=== PATIENT | male | born 1975 | race Caucasian/White ===

== ENCOUNTER 2023-01-04 14:43 | Emergency (ER) | payer OTHER | END 2023-01-04 15:10 | disposition home or self-care (01) | LOC: VM.ED 14:43 | DX: E11.40 Type 2 diabetes mellitus with diabetic neuropathy, unspecified (principal) | CPT/HCPCS: 99283 ==

== ENCOUNTER 2023-03-31 14:37 | Emergency (ER) | payer OTHER | END 2023-03-31 15:15 | disposition home or self-care (01) | LOC: VM.ED 14:37 | DX: K03.81 Cracked tooth (principal); K04.7 Periapical abscess without sinus; K02.9 Dental caries, unspecified; E78.00 Pure hypercholesterolemia, unspecified; E11.40 Type 2 diabetes mellitus with diabetic neuropathy, unspecified; Z79.899 Other long term (current) drug therapy; Z88.0 Allergy status to penicillin; Z88.2 Allergy status to sulfonamides | CPT/HCPCS: 99283 ==

== ENCOUNTER 2024-01-01 10:33 | Emergency (ER) | payer OTHER ==
[2024-01-01] MEDS ORDERED: Sodium Chloride 0.9% 10 ML Syringe FLUSH PRN (11:00)
[2024-01-01 11:12] LABS: BASOPHILS PERCENT AUTO 0.1 % (0.2-1.2); EOSINOPHILS PERCENT AUTO 0.3 % (0.0-4.0); HEMATOCRIT 50.6 % (40.0-52.0); HEMOGLOBIN 18.2 g/dL (14.0-18.0); IMMATURE GRAN ABSOLUTE AUTO 0.03 x10^3/uL (0.00-0.07); LYMPHOCYTES ABSOLUTE AUTO 1.8 x10^3/uL (1.0-4.8); LYMPHOCYTES PERCENT AUTO 15.1 % (25.0-50.0); MEAN CORPUSCULAR HEMOGLOBIN 30.8 pg (26.0-32.0); MEAN CORPUSCULAR VOLUME 85.6 fL (78.0-93.0); MONOCYTES ABSOLUTE AUTO 0.9 x10^3/uL (0.0-0.8); MONOCYTES PERCENT AUTO 7.6 % (2.0-11.0); NEUTROPHILS ABSOLUTE AUTO 9.1 x10^3/uL (1.8-7.7); NEUTROPHILS PERCENT AUTO 76.6 % (50.0-80.0); PLATELET COUNT,PLT 210 x10^3/uL (130-400); RED BLOOD CELL COUNT 5.91 x10^6/uL (4.5-6.0); WHITE BLOOD CELL COUNT,WBC 11.9 x10^3/uL (4.0-10.0)
[2024-01-01] MEDS: Pantoprazole 40 MG in Sodium Chloride 0.9% 100 ML IV SCH (11:21)
[2024-01-01] MEDS: Lactated Ringers 1,000 ML IV ONE ×2 (11:21→12:14)
[2024-01-01] MEDS: Ondansetron 4 MG/2 ML SDV IVPUSH ONE (11:22)
[2024-01-01 11:36] LABS: A/G RATIO 0.94; ALANINE AMINOTRANSFERASE,ALT 45 U/L (16-63); ALBUMIN 4.5 g/dL (3.4-5.0); ALKALINE PHOSPHATASE 108 U/L (46-116); AMYLASE 38 U/L (25-115); ASPARTATE AMNIOTRANSFERASE,AST 26 U/L (15-37); BILIRUBIN TOTAL 0.9 mg/dL (0.2-1.0); BLOOD UREA NITROGEN,BUN 35 mg/dL (7-18); CALCIUM 10.9 mg/dL (8.5-10.1); CARBON DIOXIDE,CO2 25 mmol/L (21-32); CHLORIDE,CL 91 mmol/L (98-107); CREATININE 1.2 mg/dL (0.70-1.30); GLUCOSE RANDOM 267 mg/dL (70-99); LIPASE 32 U/L (19-71); MAGNESIUM 1.9 mg/dL (1.8-2.4); POTASSIUM,K 4.8 mmol/L (3.5-5.1); PROTEIN TOTAL,TP 9.3 g/dL (6.4-8.2); SODIUM,NA 134 mmol/L (136-145); TSH ULTRASENSITIVE 2.074 uIU/mL (0.358-3.74)
[2024-01-01 11:38] LABS: ANION GAP 22.8 mmol/L (5-15); ESTIMATED GFR 74 mL/min (>=60)
[2024-01-01 11:39] LABS: C-REACTIVE PROTEIN < 0.50 mg/dL (<=0.50); ETHANOL BLOOD MEDICAL < 3 mg/dL (0-3)
[2024-01-01 12:50] LABS: AMPHETAMINES SCREEN, URINE NEGATIVE (NEGATIVE); BARBITURATE SCREEN,URINE NEGATIVE (NEGATIVE); BENZODIAZEPINES SCREEN,URINE NEGATIVE (NEGATIVE); BUPRENORPHINE SCREEN,URINE NEGATIVE (NEGATIVE); COCAINE METABOLITES,URINE NEGATIVE (NEGATIVE); METHADONE SCREEN, URINE NEGATIVE (NEGATIVE); METHAMPHETAMINE SCREEN, URINE NEGATIVE (NEGATIVE); OXYCODONE SCREEN,URINE NEGATIVE (NEGATIVE); PCP SCREEN,URINE NEGATIVE (NEGATIVE); THC SCREEN,URINE 50 NG/ML POSITIVE (NEGATIVE)
[2024-01-01] MEDS: Lactated Ringers 1,000 ML IV SCH (13:04)
[2024-01-01 14:43] LABS: APPEARANCE,URINE CLEAR (CLEAR); BILIRUBIN,URINE SMALL (NEGATIVE); COLOR,URINE YELLOW (YELLOW); GLUCOSE,URINE 500 mg/dL (NEGATIVE); KETONES,URINE >=160 mg/dL (NEGATIVE); LEUKOCYTE ESTERASE,URINE NEGATIVE (NEGATIVE); NITRITE,URINE NEGATIVE (NEGATIVE); OCCULT BLOOD,URINE NEGATIVE (NEGATIVE); PH,URINE 5.5 (5.0-8.0); PROTEIN,URINE TRACE mg/dL (NEGATIVE); UROBILINOGEN,URINE 0.2 EU/dL (0.2)
[2024-01-01 14:45] LABS: BACTERIA,URINE NOT SEEN /HPF (NOT SEEN); MUCUS,URINE OCCASIONAL /LPF (NOT SEEN); RBC,URINE 0-5 /HPF (NOT SEEN); SQUAMOUS EPITHELIAL CELLS,UR NOT SEEN /HPF (NOT SEEN); WBC,URINE NOT SEEN /HPF (NOT SEEN)
[2024-01-01 14:50] LABS: BLOOD UREA NITROGEN,BUN 26 mg/dL (7-18); CALCIUM 9.2 mg/dL (8.5-10.1); CARBON DIOXIDE,CO2 26 mmol/L (21-32); CHLORIDE,CL 97 mmol/L (98-107); GLUCOSE RANDOM 177 mg/dL (70-99); POTASSIUM,K 4.4 mmol/L (3.5-5.1); SODIUM,NA 135 mmol/L (136-145)
[2024-01-01 14:51] LABS: ANION GAP 16.4 mmol/L (5-15)
[2024-01-01 14:52] LABS: ESTIMATED GFR 92 mL/min (>=60)
[2024-01-01] MEDS: Take Home: Ondansetron 4 MG Tab.DIS, 5 Tab Pack PO ONE (15:16)
== END 2024-01-01 15:20 | disposition home or self-care (01) ==
LOC: VM.ED 10:33
DX: R11.2 Nausea with vomiting, unspecified (principal); E78.00 Pure hypercholesterolemia, unspecified; E11.40 Type 2 diabetes mellitus with diabetic neuropathy, unspecified; Z88.0 Allergy status to penicillin; Z88.2 Allergy status to sulfonamides; Z79.899 Other long term (current) drug therapy
CPT/HCPCS: 36415; 80048; 80053; 80305; 80307; 81001; 82150; 83605; 83690; 83735; 84443; 85025; 86140; 96361; 96365; 96375; 99284; C9113; J2405; J3490; J7120; Q0162; 99283

== ENCOUNTER 2024-02-07 20:41 | Emergency (ER) | payer OTHER ==
[2024-02-07 21:22] LABS: BASOPHILS PERCENT AUTO 0.1 % (0.2-1.2); EOSINOPHILS ABSOLUTE AUTO 0.1 x10^3/uL (0.0-0.5); EOSINOPHILS PERCENT AUTO 0.7 % (0.0-4.0); HEMATOCRIT 44.9 % (40.0-52.0); HEMOGLOBIN 15.6 g/dL (14.0-18.0); IMMATURE GRAN ABSOLUTE AUTO 0.01 x10^3/uL (0.00-0.07); LYMPHOCYTES ABSOLUTE AUTO 1.4 x10^3/uL (1.0-4.8); MEAN CORPUSCULAR HEMOGLOBIN 30.9 pg (26.0-32.0); MEAN CORPUSCULAR HGB CONC 34.7 g/dL (32.0-36.0); MEAN CORPUSCULAR VOLUME 88.9 fL (78.0-93.0); MONOCYTES ABSOLUTE AUTO 0.7 x10^3/uL (0.0-0.8); MONOCYTES PERCENT AUTO 8.3 % (2.0-11.0); NEUTROPHILS ABSOLUTE AUTO 6.1 x10^3/uL (1.8-7.7); NEUTROPHILS PERCENT AUTO 73.8 % (50.0-80.0); PLATELET COUNT,PLT 192 x10^3/uL (130-400); RED BLOOD CELL COUNT 5.05 x10^6/uL (4.5-6.0); WHITE BLOOD CELL COUNT,WBC 8.3 x10^3/uL (4.0-10.0)
[2024-02-07 21:41] LABS: A/G RATIO 1.24; ALANINE AMINOTRANSFERASE,ALT 20 U/L (16-63); ALBUMIN 4.2 g/dL (3.4-5.0); ALKALINE PHOSPHATASE 82 U/L (46-116); ASPARTATE AMNIOTRANSFERASE,AST 20 U/L (15-37); BILIRUBIN TOTAL 0.9 mg/dL (0.2-1.0); BLOOD UREA NITROGEN,BUN 24 mg/dL (7-18); CALCIUM 9.8 mg/dL (8.5-10.1); CARBON DIOXIDE,CO2 24 mmol/L (21-32); GLUCOSE RANDOM 172 mg/dL (70-99); PROTEIN TOTAL,TP 7.6 g/dL (6.4-8.2)
[2024-02-07 21:45] LABS: ANION GAP 21.4 mmol/L (5-15); CHLORIDE,CL 96 mmol/L (98-107); ESTIMATED GFR 92 mL/min (>=60); POTASSIUM,K 4.4 mmol/L (3.5-5.1); SODIUM,NA 137 mmol/L (136-145)
[2024-02-07 21:50] LABS: APPEARANCE,URINE CLEAR (CLEAR); BILIRUBIN,URINE MODERATE (NEGATIVE); COLOR,URINE DARK YELLOW (YELLOW); GLUCOSE,URINE NEGATIVE (NEGATIVE); KETONES,URINE 80 mg/dL (NEGATIVE); LEUKOCYTE ESTERASE,URINE NEGATIVE (NEGATIVE); NITRITE,URINE NEGATIVE (NEGATIVE); OCCULT BLOOD,URINE NEGATIVE (NEGATIVE); PROTEIN,URINE 100 mg/dL (NEGATIVE)
[2024-02-07 22:02] LABS: BACTERIA,URINE RARE /HPF (NOT SEEN); RBC,URINE 0-5 /HPF (NOT SEEN); SQUAMOUS EPITHELIAL CELLS,UR NOT SEEN /HPF (NOT SEEN); WBC,URINE NOT SEEN /HPF (NOT SEEN)
== END 2024-02-07 22:20 | disposition home or self-care (01) ==
LOC: VM.ED 20:41
DX: R11.2 Nausea with vomiting, unspecified (principal); E78.00 Pure hypercholesterolemia, unspecified; E11.40 Type 2 diabetes mellitus with diabetic neuropathy, unspecified; Z79.82 Long term (current) use of aspirin; Z79.899 Other long term (current) drug therapy; Z88.0 Allergy status to penicillin; Z88.2 Allergy status to sulfonamides
CPT/HCPCS: 36415; 80053; 81001; 85025; 99283; 99284

== ENCOUNTER 2024-08-29 17:22 | Emergency (ER) | payer BC, OTHER ==
[2024-08-29] MEDS ORDERED: Sodium Chloride 0.9% 10 ML Syringe FLUSH PRN (17:39)
[2024-08-29 17:46] LABS: BASOPHILS PERCENT AUTO 0.1 % (0.2-1.2); EOSINOPHILS ABSOLUTE AUTO 0.1 x10^3/uL (0.0-0.5); EOSINOPHILS PERCENT AUTO 0.9 % (0.0-4.0); HEMATOCRIT 50.8 % (40.0-52.0); HEMOGLOBIN 17.7 g/dL (14.0-18.0); IMMATURE GRAN ABSOLUTE AUTO 0.05 x10^3/uL (0.00-0.07); LYMPHOCYTES ABSOLUTE AUTO 2.3 x10^3/uL (1.0-4.8); LYMPHOCYTES PERCENT AUTO 15.3 % (25.0-50.0); MEAN CORPUSCULAR HEMOGLOBIN 31.6 pg (26.0-32.0); MEAN CORPUSCULAR HGB CONC 34.8 g/dL (32.0-36.0); MEAN CORPUSCULAR VOLUME 90.6 fL (78.0-93.0); NEUTROPHILS ABSOLUTE AUTO 11.4 x10^3/uL (1.8-7.7); NEUTROPHILS PERCENT AUTO 76.4 % (50.0-80.0); PLATELET COUNT,PLT 290 x10^3/uL (130-400); RED BLOOD CELL COUNT 5.61 x10^6/uL (4.5-6.0); WHITE BLOOD CELL COUNT,WBC 14.9 x10^3/uL (4.0-10.0)
[2024-08-29] MEDS: Lactated Ringers 1,000 ML IV ONE ×2 (17:49→19:08)
[2024-08-29] MEDS: Ondansetron 4 MG/2 ML SDV IVPUSH ONE ×2 (17:50→20:20)
[2024-08-29 17:57] LABS: INR 0.9 (0.9-1.1); PROTHROMBIN TIME 10.1 SEC (9.6-12.0); PTT,PARTIAL THROMBOPLSTIN TIME 24.5 SEC (23.5-33.2)
[2024-08-29 18:00] LABS: A/G RATIO 0.83; ALANINE AMINOTRANSFERASE,ALT 30 U/L (16-63); ALKALINE PHOSPHATASE 97 U/L (46-116); ASPARTATE AMNIOTRANSFERASE,AST 19 U/L (15-37); BILIRUBIN TOTAL 0.7 mg/dL (0.2-1.0); BLOOD UREA NITROGEN,BUN 26 mg/dL (7-18); C-REACTIVE PROTEIN 8.57 mg/dL (<=0.50); CALCIUM 10.5 mg/dL (8.5-10.1); CARBON DIOXIDE,CO2 22 mmol/L (21-32); CHLORIDE,CL 89 mmol/L (98-107); GLUCOSE RANDOM 198 mg/dL (70-99); LIPASE 28 U/L (19-71); MAGNESIUM 2.1 mg/dL (1.8-2.4); PROTEIN TOTAL,TP 8.8 g/dL (6.4-8.2); SODIUM,NA 133 mmol/L (136-145)
[2024-08-29 18:01] LABS: ESTIMATED GFR 92 mL/min (>=60)
[2024-08-29 18:03] LABS: LACTIC ACID 2.6 mmol/L (0.4-2.0)
[2024-08-29] MEDS: Iopamidol 612 MG/ML 100 ML Bottle IVPUSH ONE (18:32)
[2024-08-29] MEDS ORDERED: cefTRIAXone 2 GM Vial IVPUSH ONE (19:32)
[2024-08-29] MEDS: Sodium Chloride 0.9% 1,000 ML IV ONE (19:55)
[2024-08-29] MEDS: Ciprofloxacin in D5W 400 MG in Premix Bag 1 BAG IV ONE (20:05)
[2024-08-29 20:27] LABS: APPEARANCE,URINE CLEAR (CLEAR); BILIRUBIN,URINE SMALL (NEGATIVE); COLOR,URINE YELLOW (YELLOW); GLUCOSE,URINE 500 mg/dL (NEGATIVE); KETONES,URINE >=160 mg/dL (NEGATIVE); LEUKOCYTE ESTERASE,URINE NEGATIVE (NEGATIVE); NITRITE,URINE NEGATIVE (NEGATIVE); OCCULT BLOOD,URINE NEGATIVE (NEGATIVE); PH,URINE 5.5 (5.0-8.0); PROTEIN,URINE NEGATIVE (NEGATIVE); UROBILINOGEN,URINE 0.2 EU/dL (0.2)
[2024-08-29] MEDS: HYDROmorphone 0.5 MG/0.5 ML Syringe IVPUSH ONE (20:56)
[2024-08-29] MEDS: metroNIDAZOLE/Normal Saline 500 MG in Premix Bag 1 BAG IV ONE (21:13)
== END 2024-08-29 21:25 | disposition short-term general hospital (02) ==
LOC: VM.ED 17:22
DX: K35.200 Acute appendicitis with generalized peritonitis, without perforation or abscess (principal); E78.00 Pure hypercholesterolemia, unspecified; E11.40 Type 2 diabetes mellitus with diabetic neuropathy, unspecified; Z79.899 Other long term (current) drug therapy; Z79.82 Long term (current) use of aspirin; Z79.84 Long term (current) use of oral hypoglycemic drugs; Z88.2 Allergy status to sulfonamides; Z88.0 Allergy status to penicillin
CPT/HCPCS: 36415; 74177; 80053; 81003; 83605; 83690; 83735; 85025; 85610; 85730; 86140; 87428-QW; 96361; 96365; 96375; 96376; 99284; 99285-25; J0744; J1836; J2405; J7030; J7120; Q9967

== ENCOUNTER 2024-09-02 17:20 | Emergency (ER) | payer BC ==
[2024-09-02] MEDS: Lactated Ringers 1,000 ML IV SCH (17:42)
[2024-09-02] MEDS: Ondansetron 4 MG/2 ML SDV IVPUSH PRN (17:42)
[2024-09-02 17:49] LABS: HEMATOCRIT 52.2 % (40.0-52.0); HEMOGLOBIN 17.8 g/dL (14.0-18.0); MEAN CORPUSCULAR HEMOGLOBIN 31.3 pg (26.0-32.0); MEAN CORPUSCULAR HGB CONC 34.1 g/dL (32.0-36.0); MEAN CORPUSCULAR VOLUME 91.9 fL (78.0-93.0); RED BLOOD CELL COUNT 5.68 x10^6/uL (4.5-6.0); WHITE BLOOD CELL COUNT,WBC 16.1 x10^3/uL (4.0-10.0)
[2024-09-02 18:06] LABS: ALBUMIN 3.8 g/dL (3.4-5.0); ANION GAP 30.6 mmol/L (5-15); BILIRUBIN TOTAL 0.6 mg/dL (0.2-1.0); EST CRCL DRUG DOSING (CG) 82.55 mL/min; POTASSIUM,K 3.6 mmol/L (3.5-5.1); PROTEIN TOTAL,TP 7.6 g/dL (6.4-8.2)
[2024-09-02] MEDS: Lactated Ringers 1,000 ML IV ONE (18:24)
[2024-09-02 19:02] LABS: APPEARANCE,URINE CLEAR (CLEAR); BILIRUBIN,URINE SMALL (NEGATIVE); COLOR,URINE YELLOW (YELLOW); GLUCOSE,URINE 500 mg/dL (NEGATIVE); KETONES,URINE >=160 mg/dL (NEGATIVE); LEUKOCYTE ESTERASE,URINE NEGATIVE (NEGATIVE); NITRITE,URINE NEGATIVE (NEGATIVE); OCCULT BLOOD,URINE NEGATIVE (NEGATIVE); PROTEIN,URINE 30 mg/dL (NEGATIVE); UROBILINOGEN,URINE 0.2 EU/dL (0.2)
[2024-09-02 19:07] LABS: BACTERIA,URINE OCCASIONAL /HPF (NOT SEEN); MUCUS,URINE FEW /LPF (NOT SEEN); RBC,URINE 0-5 /HPF (NOT SEEN); WBC,URINE 0-5 /HPF (NOT SEEN)
[2024-09-02] MEDS: Metoclopramide 10 MG/2 ML SDV IVPUSH ONE (19:20)
[2024-09-02] MEDS: Take Home: Ondansetron 4 MG Tab.DIS, 5 Tab Pack PO ONE (20:15)
== END 2024-09-02 20:17 | disposition home or self-care (01) ==
LOC: VM.ED 17:20
DX: K91.0 Vomiting following gastrointestinal surgery (principal); E78.00 Pure hypercholesterolemia, unspecified; E11.40 Type 2 diabetes mellitus with diabetic neuropathy, unspecified; Z79.82 Long term (current) use of aspirin; Z79.899 Other long term (current) drug therapy; Z79.84 Long term (current) use of oral hypoglycemic drugs; Z88.0 Allergy status to penicillin; Z88.2 Allergy status to sulfonamides; Z90.49 Acquired absence of other specified parts of digestive tract
CPT/HCPCS: 80053; 81001; 85027; 96361; 96374; 96375; 99284; J2405; J2765; J7120; Q0162

== ENCOUNTER 2024-09-03 03:52 | Inpatient (IN) | payer BC ==
[2024-09-03] MEDS: Sodium Chloride 0.9% 1,000 ML IV SCH ×2 (03:57→08:17)
[2024-09-03 04:40] LABS: HEMATOCRIT 50.5 % (40.0-52.0); HEMOGLOBIN 16.9 g/dL (14.0-18.0); MEAN CORPUSCULAR HEMOGLOBIN 31.1 pg (26.0-32.0); MEAN CORPUSCULAR HGB CONC 33.5 g/dL (32.0-36.0); RED BLOOD CELL COUNT 5.43 x10^6/uL (4.5-6.0)
[2024-09-03 04:42] LABS: WHITE BLOOD CELL COUNT,WBC 20.5 x10^3/uL (4.0-10.0)
[2024-09-03 04:53] LABS: A/G RATIO 1.06; ALBUMIN 3.6 g/dL (3.4-5.0); ANION GAP 39.6 mmol/L (5-15); BILIRUBIN TOTAL 0.6 mg/dL (0.2-1.0); CALCIUM 9.4 mg/dL (8.5-10.1); CREATININE 1.3 mg/dL (0.70-1.30); EST CRCL DRUG DOSING (CG) 65.07 mL/min; POTASSIUM,K 4.6 mmol/L (3.5-5.1)
[2024-09-03] MEDS: Iopamidol 612 MG/ML 100 ML Bottle IVPUSH ONE (05:00)
[2024-09-03] MEDS: Metoclopramide 10 MG/2 ML SDV IVPUSH ONE (07:22)
[2024-09-03] MEDS ORDERED: Metoclopramide 10 MG/2 ML SDV IV PRN (12:30)
[2024-09-03] MEDS ORDERED: Prochlorperazine 10 MG/2 ML SDV IV PRN (12:30)
[2024-09-03] MEDS ORDERED: Scopalamine 1mg/3day Transdermal Patch TRDERM PRN (12:37)
[2024-09-03] MEDS: Enoxaparin 40 MG/0.4 ML Syringe SUBCUT SCH (13:11)
[2024-09-03] MEDS: Lactated Ringers 1,000 ML IV SCH (13:12)
[2024-09-03] MEDS: Pantoprazole 40 MG Vial IVPUSH SCH (13:12)
[2024-09-03] MEDS: Lidocaine 4% 5 ML Amp TOP ONE (19:35)
[2024-09-03] MEDS: Promethazine 25 MG/ML SDV IM ONE (19:36)
[2024-09-03] MEDS: ESTRADIOL 2 MG PO SCH (20:13)
[2024-09-03] MEDS: Ciprofloxacin in D5W 400 MG in Premix Bag 1 BAG IV SCH (20:48)
[2024-09-03] MEDS: metroNIDAZOLE/Normal Saline 500 MG in Premix Bag 1 BAG IV SCH (20:48)
[2024-09-04 07:04] LABS: HEMATOCRIT 47.8 % (40.0-52.0); HEMOGLOBIN 15.8 g/dL (14.0-18.0); MEAN CORPUSCULAR HEMOGLOBIN 31.2 pg (26.0-32.0); MEAN CORPUSCULAR HGB CONC 33.1 g/dL (32.0-36.0); MEAN CORPUSCULAR VOLUME 94.3 fL (78.0-93.0); RED BLOOD CELL COUNT 5.07 x10^6/uL (4.5-6.0)
[2024-09-04 07:06] LABS: WHITE BLOOD CELL COUNT,WBC 23.4 x10^3/uL (4.0-10.0)
[2024-09-04 07:23] LABS: A/G RATIO 0.91; ALBUMIN 3.2 g/dL (3.4-5.0); ANION GAP 31.6 mmol/L (5-15); BILIRUBIN TOTAL 0.4 mg/dL (0.2-1.0); CALCIUM 8.8 mg/dL (8.5-10.1); CREATININE 1.1 mg/dL (0.70-1.30); EST CRCL DRUG DOSING (CG) 75.05 mL/min; POTASSIUM,K 4.6 mmol/L (3.5-5.1); PROTEIN TOTAL,TP 6.7 g/dL (6.4-8.2)
[2024-09-04] MEDS: ESTRADIOL 2 MG PO SCH (08:00)
[2024-09-04] MEDS: Ondansetron 4 MG/2 ML SDV IV PRN (12:14)
[2024-09-04 18:06] LABS: HEMATOCRIT 45.6 % (40.0-52.0); HEMOGLOBIN 15.3 g/dL (14.0-18.0); MEAN CORPUSCULAR HGB CONC 33.6 g/dL (32.0-36.0); MEAN CORPUSCULAR VOLUME 92.3 fL (78.0-93.0); RED BLOOD CELL COUNT 4.94 x10^6/uL (4.5-6.0)
[2024-09-04] MEDS: cefTRIAXone 2 GM Vial IVPUSH SCH (18:37)
[2024-09-05 06:52] LABS: HEMATOCRIT 45.9 % (40.0-52.0); HEMOGLOBIN 15.5 g/dL (14.0-18.0); MEAN CORPUSCULAR HEMOGLOBIN 30.9 pg (26.0-32.0); MEAN CORPUSCULAR HGB CONC 33.8 g/dL (32.0-36.0); MEAN CORPUSCULAR VOLUME 91.6 fL (78.0-93.0); RED BLOOD CELL COUNT 5.01 x10^6/uL (4.5-6.0)
[2024-09-05 07:15] LABS: A/G RATIO 0.83; BILIRUBIN TOTAL 0.4 mg/dL (0.2-1.0); CALCIUM 8.8 mg/dL (8.5-10.1); EST CRCL DRUG DOSING (CG) 80.51 mL/min; POTASSIUM,K 3.8 mmol/L (3.5-5.1); PROTEIN TOTAL,TP 6.6 g/dL (6.4-8.2)
[2024-09-05 07:16] LABS: ANION GAP 29.8 mmol/L (5-15)
[2024-09-05] MEDS: Metoclopramide 10 MG/2 ML SDV IV SCH (09:34)
[2024-09-06] MEDS: Pantoprazole 40 MG Tab.CR PO SCH (06:01)
[2024-09-06 07:09] LABS: HEMATOCRIT 41.8 % (40.0-52.0); HEMOGLOBIN 14.6 g/dL (14.0-18.0); MEAN CORPUSCULAR HEMOGLOBIN 31.3 pg (26.0-32.0); MEAN CORPUSCULAR HGB CONC 34.9 g/dL (32.0-36.0); MEAN CORPUSCULAR VOLUME 89.5 fL (78.0-93.0); RED BLOOD CELL COUNT 4.67 x10^6/uL (4.5-6.0); WHITE BLOOD CELL COUNT,WBC 12.6 x10^3/uL (4.0-10.0)
[2024-09-06 07:28] LABS: A/G RATIO 0.85; ALBUMIN 2.8 g/dL (3.4-5.0); BILIRUBIN TOTAL 0.5 mg/dL (0.2-1.0); CALCIUM 8.3 mg/dL (8.5-10.1); CREATININE 0.8 mg/dL (0.70-1.30); EST CRCL DRUG DOSING (CG) 100.64 mL/min; POTASSIUM,K 3.4 mmol/L (3.5-5.1); PROTEIN TOTAL,TP 6.1 g/dL (6.4-8.2)
[2024-09-06 07:31] LABS: ANION GAP 23.4 mmol/L (5-15)
[2024-09-06] MEDS: Potassium Chloride 10 MEQ Tab.ER PO SCH (10:00)
== END 2024-09-06 13:45 | disposition home or self-care (01) | DRG 252 ==
LOC: VM.ED 03:52 → VM.MS 08:31
PROVIDERS: ADMIT Nurse Practitioner Family; ATTEND Internal Medicine
PROC: 0D9670Z Drainage of Stomach with Drainage Device, Via Natural or Artificial Opening (ICD-10-PCS; principal; 2024-09-03)
DX: K91.89 Other postprocedural complications and disorders of digestive system (principal); E44.0 Moderate protein-calorie malnutrition; K56.7 Ileus, unspecified; E78.00 Pure hypercholesterolemia, unspecified; K52.9 Noninfective gastroenteritis and colitis, unspecified; E11.42 Type 2 diabetes mellitus with diabetic polyneuropathy; F64.9 Gender identity disorder, unspecified; E86.0 Dehydration; D72.829 Elevated white blood cell count, unspecified; J45.20 Mild intermittent asthma, uncomplicated; E87.6 Hypokalemia; Z68.1 Body mass index [BMI] 19.9 or less, adult; Z90.49 Acquired absence of other specified parts of digestive tract; Z88.0 Allergy status to penicillin; Z88.2 Allergy status to sulfonamides; Z79.899 Other long term (current) drug therapy; Z79.82 Long term (current) use of aspirin; Z79.84 Long term (current) use of oral hypoglycemic drugs
CPT/HCPCS: 36415; 43752; 74018; 74177; 80053; 82947; 83735; 85027; 96361; 96372; 96374; 97116-GP; 97161-GP; 99284; 99285-25; A9270-GY; J0696; J0744; J1650; J1836; J2405; J2470; J2550; J2765; J7030; J7120; Q9967

== ENCOUNTER 2025-05-31 17:51 | Emergency (ER) | payer BC ==
[2025-05-31] MEDS ORDERED: Sodium Chloride 0.9% 10 ML Syringe FLUSH PRN (18:10)
[2025-05-31 18:24] LABS: BASOPHILS ABSOLUTE AUTO 0.0 x10^3/uL (0.0-0.2); BASOPHILS PERCENT AUTO 0.1 % (0.2-1.2); EOSINOPHILS ABSOLUTE AUTO 0.1 x10^3/uL (0.0-0.5); EOSINOPHILS PERCENT AUTO 0.6 % (0.0-4.0); IMMATURE GRAN ABSOLUTE AUTO 0.08 x10^3/uL (0.00-0.07); IMMATURE GRAN PERCENT AUTO 0.60 % (0.00-0.43); LYMPHOCYTES ABSOLUTE AUTO 1.9 x10^3/uL (1.0-4.8); LYMPHOCYTES PERCENT AUTO 13.2 % (25.0-50.0); MONOCYTES ABSOLUTE AUTO 0.9 x10^3/uL (0.0-0.8); MONOCYTES PERCENT AUTO 6.0 % (2.0-11.0); NEUTROPHILS ABSOLUTE AUTO 11.2 x10^3/uL (1.8-7.7); NEUTROPHILS PERCENT AUTO 79.5 % (50.0-80.0); PLATELET COUNT,PLT 264 x10^3/uL (130-400); RED BLOOD CELL COUNT 5.58 x10^6/uL (4.5-6.0); WHITE BLOOD CELL COUNT,WBC 14.1 x10^3/uL (4.0-10.0)
[2025-05-31 18:43] LABS: A/G RATIO 0.95; ALANINE AMINOTRANSFERASE,ALT 33 U/L (16-63); ASPARTATE AMNIOTRANSFERASE,AST 21 U/L (15-37); BILIRUBIN TOTAL 0.8 mg/dL (0.2-1.0); BLOOD UREA NITROGEN,BUN 27 mg/dL (7-18); CARBON DIOXIDE,CO2 24 mmol/L (21-32); CHLORIDE,CL 91 mmol/L (98-107); CREATININE 1.2 mg/dL (0.70-1.30); GLUCOSE RANDOM 259 mg/dL (70-99); POTASSIUM,K 4.4 mmol/L (3.5-5.1); PROTEIN TOTAL,TP 8.0 g/dL (6.4-8.2); SODIUM,NA 137 mmol/L (136-145)
[2025-05-31 18:44] LABS: ESTIMATED GFR 73 mL/min (>=60)
[2025-05-31 19:43] LABS: APPEARANCE,URINE CLEAR (CLEAR); GLUCOSE,URINE 500 mg/dL (NEGATIVE); OCCULT BLOOD,URINE NEGATIVE (NEGATIVE)
[2025-05-31 19:49] LABS: SQUAMOUS EPITHELIAL CELLS,UR RARE /HPF (NOT SEEN)
[2025-05-31 19:55] LABS: A/G RATIO 0.86; ALANINE AMINOTRANSFERASE,ALT 30.0 U/L (16-63); ASPARTATE AMNIOTRANSFERASE,AST 19.0 U/L (15-37); BILIRUBIN TOTAL 0.6 mg/dL (0.2-1.0); BLOOD UREA NITROGEN,BUN 26.0 mg/dL (7-18); CARBON DIOXIDE,CO2 23.0 mmol/L (21-32); CHLORIDE,CL 98.0 mmol/L (98-107); CREATININE 0.9 mg/dL (0.70-1.30); EST CRCL DRUG DOSING (CG) 90.46 mL/min; ESTIMATED GFR 103.0 mL/min (>=60); GLUCOSE RANDOM 225.0 mg/dL (70-99); POTASSIUM,K 4.1 mmol/L (3.5-5.1); PROTEIN TOTAL,TP 6.9 g/dL (6.4-8.2); SODIUM,NA 139.0 mmol/L (136-145)
[2025-05-31] MEDS: Iopamidol 612 MG/ML 100 ML Bottle IVPUSH ONE (20:52)
== END 2025-05-31 21:57 | disposition home or self-care (01) ==
LOC: VM.ED 17:51
DX: K29.00 Acute gastritis without bleeding (principal); E86.0 Dehydration; E78.00 Pure hypercholesterolemia, unspecified; E11.42 Type 2 diabetes mellitus with diabetic polyneuropathy; Z90.49 Acquired absence of other specified parts of digestive tract; Z88.0 Allergy status to penicillin; Z88.2 Allergy status to sulfonamides; Z88.8 Allergy status to other drugs, medicaments and biological substances; Z91.018 Allergy to other foods; Z79.82 Long term (current) use of aspirin; Z79.899 Other long term (current) drug therapy
CPT/HCPCS: 36415; 74019; 74177; 80053; 81001; 82947; 83690; 85025; 96361; 96374; 99284; A9270; J2765; J7030; Q9967